=== PATIENT | female | born 1990 | race American Indian/Alaskan Native ===

== ENCOUNTER 2018-06-06 08:04 | Emergency (ER) | payer SELFPAY ==
[2018-06-06] MEDS ORDERED: BICILLIN L-A IM ONE (08:48)
[2018-06-06] MEDS ORDERED: IBUPROFEN PO ONE (08:49)
--- NOTE | 2018-06-06 08:55 | Emergency Department Report ---
ED Back Pain/Injury HPI - General Chief Complaint: Vaginal Bleeding Stated Complaint: RT SIDE MOUTH/RT EAR PAIN Time Seen by Provider: 06/06/18 08:34 Source: patient Limitations: No Limitations - History of Present Illness Initial Comments: Patient is a 27-year-old female that comes to the ER today with 2 complaints. One she is complaining of dental pain. 2 she is complaining of irregular menses. She had a period last week it was its usual length and duration. It then recurred over the last couple days with heavy spotting. Patient does not suspect . She is just concerned because she's never done this before. - Related Data Previous Rx's Medication Instructions Recorded Last Taken Type Amoxicillin [Trimox CAP] 500 mg PO BID #20 capsule 06/06/18 Unknown Rx Ibuprofen [Motrin] 800 mg PO Q8HR PRN #20 tablet 06/06/18 Unknown Rx Allergies Allergy/AdvReac Type Severity Reaction Status Date / Time bismuth subsalicylate AdvReac Unknown Verified 08/25/15 19:35 [From Pepto-Bismol] ED Review of Systems ROS: Stated complaint: RT SIDE MOUTH/RT EAR PAIN Other details as noted in HPI Comment: All other systems reviewed and negative ENT: dental pain Genitourinary: as per HPI, abnormal menses. denies: urgency, dysuria, frequency, hematuria, discharge, dyspareunia ED Past Medical Hx - Past Medical History Medical history: no medical history Surgical history: Family history: no significant family history ED Back Pain Physical Exam - Exam General: Vital signs noted. No distress. Alert and acting appropriately. Patient is alert and oriented. There is no focal neuro deficits. S1 and S2. No tachycardia or hypertension. Lungs are clear to auscultation. Dental caries noted tooth #1. There is no abscess. ABCs intact. No trismus. No abscess. No fluid waves. Patient is taking by mouth. There is no difficulty swallowing. Abdomen soft and nontender. There is no CVA tenderness. Patient denies vaginal discharge. She is not concerned that she is . Patient is not even wearing pads. She states that she is soiled her underwear a few times with this vaginal bleeding. Patient is ambulatory and nontoxic. Back/Abdomen: No Abdominal Tenderness, No Perithoracic Tenderness, No Perilumbar Tenderness, No Sacroiliac Tenderness, No Flank Tenderness, No Straight Leg Raise Pain Neuro: Yes Normal Sensation, Yes Normal DTR's, Yes Normal Gait, No Motor Weakness ED Course Vital Signs 06/06/18 08:09 Temperature 98.1 F Pulse Rate 69 Respiratory 18 Rate Blood Pressure 164/81 O2 Sat by Pulse 97 Oximetry Ed Back Pain Tests - Tests Tests: Normal UA ED Medical Decision Making - Medical Decision Making DENTAL PAIN BICILLIN IM MOTRIN FOR PAIN TO DMD VAG BLEED PREG NEG WILL FOLLOW UP WITH OBGYN Labs 06/06/18 08:28 Urine HCG, Qual Negative Vital Signs 06/06/18 06/06/18 08:09 09:02 Temperature 98.1 F Pulse Rate 69 Respiratory 18 20 Rate Blood Pressure 164/81 O2 Sat by Pulse 97 Oximetry - Differential Diagnosis RO PREG. / RO ABSCESS Critical care attestation.: If time is entered above; I have spent that time in minutes in the direct care of this critically ill patient, excluding procedure time. ED Disposition Clinical Impression: DUB (dysfunctional uterine bleeding), Pain, dental Disposition: - TO HOME OR SELFCARE Is pt being admited?: No Does the pt Need Aspirin: No Condition: Stable Additional Instructions: med as ordered today diet as tolerated activity as tolerated hydrate well with water FOLLOW UP WITH DENTIST FOR TOOTH FOLLOW UP WITH OB FOR VAG BLEEDING NEGATIVE TODAY Referrals: MEL DEL TOROCANDO MD KATELYN [Primary Care Provider] - 3-5 Days [facility] [Outside] - 3-5 Days [facility] [Outside] - 3-5 Days CHILANGO MEEKS MD [Staff Physician] - 3-5 Days Time of Disposition: 09:32
[2018-06-06 09:13] LABS: HCG Qualitative,Urine Negative (Negative)
[2018-06-06 10:05] LABS: Mucus,Urine FEW /HPF
[2018-06-06 10:06] LABS: Bilirubin,Urine NEG (Negative); Blood,Urine LG (Negative); Color,Urine Yellow (Yellow); Protein,Urine <15 mg/dL mg/dL (Negative)
[2018-06-06 10:09] VITALS: BP 160/80
== END 2018-06-06 10:08 | disposition home or self-care (01) ==
LOC: ED 08:04
DX: N93.8 Other specified abnormal uterine and vaginal bleeding (principal); K08.89 Other specified disorders of teeth and supporting structures; Z88.8 Allergy status to other drugs, medicaments and biological substances
CPT/HCPCS: 81001; 81025; 96372; 99283; J0561

== ENCOUNTER 2021-03-26 10:41 | Emergency (ER) | payer MEDICAID ==
[2021-03-26 11:26] VITALS: BP 140/82
--- NOTE | 2021-03-26 12:05 | Emergency Department Report ---
ED Upper Extremity Inj HPI - General Chief Complaint: Extremity Problem,Nontraumatic Stated Complaint: INJURED FINGER Source: patient Mode of arrival: Ambulatory Limitations: No Limitations - History of Present Illness Initial Comments: 30 yo comes to ER 2 w p hurting left ring finger. She states it has remained swollen. MIP is swollen but she can flex She can not flex DIP/ also swollen no other injury has not seen md prior to today MD Complaint: Injury to:: left -: week(s) Other Extremity Injury: Fingers: Left Other Injuries: none Handedness: right Place: home Improves With: none Worsens With: movement of extremity Associated Symptoms: denies other symptoms - Related Data Previous Rx's Medication Instructions Recorded Last Taken Type Amoxicillin [Trimox CAP] 500 mg PO BID #20 capsule 06/06/18 Unknown Rx Ibuprofen [Motrin] 800 mg PO Q8HR PRN #20 tablet 06/06/18 Unknown Rx Allergies Allergy/AdvReac Type Severity Reaction Status Date / Time bismuth subsalicylate AdvReac Unknown Verified 08/25/15 19:35 [From Pepto-Bismol] ED Review of Systems ROS: Stated complaint: INJURED FINGER Other details as noted in HPI Comment: All other systems reviewed and negative ED Past Medical Hx - Past Medical History Previous Medical History?: No Hx Hypertension: No Hx Congestive Heart Failure: No Hx Diabetes: No Hx Deep Vein Thrombosis: No Hx Renal Disease: No Hx Sickle Cell Disease: No Hx Seizures: No Hx Asthma: No Hx COPD: No Hx HIV: No - Surgical History Past Surgical History?: Yes Additional Surgical History: c- section - Family History Family history: no significant - Social History Smoking Status: Never Smoker Substance Use Type: Alcohol - Medications Home Medications: Home Medications Medication Instructions Recorded Confirmed Last Taken Type Amoxicillin [Trimox CAP] 500 mg PO BID #20 capsule 06/06/18 Unknown Rx Ibuprofen [Motrin] 800 mg PO Q8HR PRN #20 tablet 06/06/18 Unknown Rx ED Physical Exam - General Limitations: No Limitations General appearance: alert, in no apparent distress - Head Head exam: Present: atraumatic, normocephalic - Eye Eye exam: Present: normal appearance - ENT ENT exam: Present: mucous membranes moist - Neck Neck exam: Present: normal inspection - Respiratory Respiratory exam: Present: normal lung sounds bilaterally. Absent: respiratory distress - Cardiovascular Cardiovascular Exam: Present: regular rate, normal rhythm. Absent: systolic murmur, diastolic murmur, rubs, gallop - GI/Abdominal GI/Abdominal exam: Present: soft, normal bowel sounds - Extremities Exam Extremities exam: Present: normal inspection - Expanded Upper Extremity Exam Left Elbow exam: Present: normal inspection Forearm Wrist exam: Present: normal inspection Hand Wrist exam: Present: other - Back Exam Back exam: Present: normal inspection - Neurological Exam Neurological exam: Present: alert, oriented X3 - Psychiatric Psychiatric exam: Present: normal affect, normal mood - Skin Skin exam: Present: warm, dry, intact, normal color. Absent: rash ED Course Vital Signs 03/26/21 03/26/21 11:20 13:35 Temperature 98.9 F Pulse Rate 77 Respiratory 16 16 Rate Blood Pressure 140/82 [Left] O2 Sat by Pulse 100 99 Oximetry ED Medical Decision Making - Radiology Data Radiology results: report reviewed fx - Medical Decision Making finger splint placed educated on RICE- to get the swelling down so she can get her rings off she understands she will need to see ortho MD dc home with dc plan of care including ortho follow up she understands this is a 2 w old injury and she should see ortho maninder to determine if the joint is healing properly- she verbalizes understanding neurovasc intact Vital Signs 03/26/21 11:20 Temperature 98.9 F Pulse Rate 77 Respiratory 16 Rate Blood Pressure 140/82 [Left] O2 Sat by Pulse 100 Oximetry - Differential Diagnosis ro fx vs tendon injury Critical care attestation.: If time is entered above; I have spent that time in minutes in the direct care of this critically ill patient, excluding procedure time. ED Disposition Clinical Impression: Fracture, finger Qualifiers: Encounter type: initial encounter Finger: ring finger Fracture type: closed Phalanx: middle Laterality: left Disposition: 01 HOME / SELF CARE / HOMELESS Is pt being admited?: No Does the pt Need Aspirin: No Condition: Stable Additional Instructions: rest ice elevate splint until seen by ortho follow up with ortho MD maninder referral to ortho below Referrals: SB SALAZAR MD [Staff Physician] - 3-5 Days Time of Disposition: 12:53
--- NOTE | 2021-03-26 12:57 | XRay Report ---
LEFT FINGER(S) 3 VIEW(S) INDICATION / CLINICAL INFORMATION: finger pain COMPARISON: None available. FINDINGS: BONES / JOINT(S): There is a incompletely united fracture of the middle phalanx of the ring finger. T here is some callus formation.. A fracture involves the DIP joint. No significant arthritis. SOFT TISSUES: There is mild soft tissue swelling of the fourth finger. The patient has a ring on the fourth finger. ADDITIONAL FINDINGS: None. Signer Name: Zoran Dill MD Signed: 03/26/2021 12:52 PM Workstation Name: [id number]
[2021-03-26] MEDS ORDERED: dexAMETHasone 4 MG/ML VIAL IM ONE (13:08)
== END 2021-03-26 13:35 | disposition home or self-care (01) ==
LOC: ED 10:41
DX: S62.605A Fracture of unspecified phalanx of left ring finger, initial encounter for closed fracture (principal); X58.XXXA Exposure to other specified factors, initial encounter; Y93.89 Activity, other specified; Y92.89 Other specified places as the place of occurrence of the external cause; Y99.8 Other external cause status; Z98.890 Other specified postprocedural states; Z91.09 Other allergy status, other than to drugs and biological substances
CPT/HCPCS: 29130; 73140; 96372; 99283; J1100